=== PATIENT | male | born 2000 | race Caucasian/White ===

== ENCOUNTER 2024-04-09 16:16 | Emergency (ER) | payer MEDICAID ==
[~2024-04-09] VITALS: Ht 170.2 cm; Wt 86.2 kg
[2024-04-09 16:20] VITALS: BP 139/103; PULSE 110; RESP 20; TEMP 97.8; O2SAT 0
[2024-04-09] MEDS ORDERED: LIDOCAINE MPF 1% 10 MG/ML VIAL INJ ONE (16:55)
[2024-04-09] MEDS: LIDOCAINE MPF 1% 10 MG/ML VIAL INJ ONE (17:01)
[2024-04-09] MEDS ORDERED: IBUP-1842 PO (17:23)
[2024-04-09 17:25] VITALS: BP 140/99; PULSE 105; RESP 20; TEMP 97.5; O2SAT 99
== END 2024-04-09 17:25 | disposition home or self-care (01) ==
LOC: MED 16:16
DX: S61.214A Laceration without foreign body of right ring finger without damage to nail, initial encounter (principal); S61.212A Laceration without foreign body of right middle finger without damage to nail, initial encounter; Z79.899 Other long term (current) drug therapy; W26.8XXA Contact with other sharp object(s), not elsewhere classified, initial encounter; Y93.89 Activity, other specified; Y92.89 Other specified places as the place of occurrence of the external cause; Y99.8 Other external cause status
CPT/HCPCS: 12002; 90471; 90715; 99283; J2001